=== PATIENT | male | born 2000 | race Hispanic/Latino ===

== ENCOUNTER 2024-12-21 19:25 | Emergency (ER) | payer SELFPAY ==
[2024-12-21] MEDS ORDERED: Ibuprofen 800 MG TAB ONE (19:50)
== END 2024-12-21 21:05 | disposition home or self-care (01) ==
LOC: MADERS 19:25
DX: S16.1XXA Strain of muscle, fascia and tendon at neck level, initial encounter (principal); S00.12XA Contusion of left eyelid and periocular area, initial encounter; S50.12XA Contusion of left forearm, initial encounter; S50.11XA Contusion of right forearm, initial encounter; H11.32 Conjunctival hemorrhage, left eye; R51.9 Headache, unspecified; F17.210 Nicotine dependence, cigarettes, uncomplicated; W19.XXXA Unspecified fall, initial encounter
CPT/HCPCS: 70450; 70486; 72125